=== PATIENT | male | born 1965 | race Caucasian/White ===

== ENCOUNTER 2017-11-14 12:25 | Inpatient (IN) | payer BC ==
[~2017-11-14] VITALS: Ht 170.2 cm; Wt 71.3 kg
[2017-11-14 13:07] LABS: BASOPHIL % 0.3 % (0-2); PLATELET COUNT 311 x10^3mcL (130-400)
[2017-11-14 13:08] LABS: UA SPECIFIC GRAVITY 1.015 (1.005-1.035); microscopic required? YES; urine erythrocyte NEGATIVE (NEGATIVE)
[2017-11-14 13:08] LABS: RED CELL DISTRIBUTION WIDTH 14.6 % (11.5-14.5)
[2017-11-14 13:15] LABS: CARBON DIOXIDE 31.4 mmol/L (21-32); CHLORIDE SERUM 102 mmol/L (98-107); CREATININE SERUM 1.1 mg/dL (0.7-1.3); GFR1 > 60 mL/min; GLUCOSE SERUM 102 mg/dL (74-106); POTASSIUM SERUM 4.3 mmol/L (3.5-5.1); SODIUM SERUM 136 mmol/L (136-145)
[2017-11-14 13:19] LABS: ALBUMIN 4.1 g/dL (3.4-5.0); ALKALINE PHOSPHATASE 113 U/L (46-116); ALT/SGPT 11 U/L (16-63); AST/SGOT 12 U/L (15-37); BILIRUBIN TOTAL 0.6 mg/dL (0.20-1.00); HDL CHOLESTEROL 49 mg/dL (40-60); LIPASE 74 IU/L (73-393); TOTAL PROTEIN, SERUM 7.8 g/dL (6.4-8.2); TRIGLYCERIDES 100 mg/dL (<150)
[2017-11-14 13:23] LABS: CHOLESTEROL 286 mg/dL (<200); CHOLESTEROL/HDL RATIO 5.8
[2017-11-14 14:18] LABS: AMPHETAMINE QUAL UR NONE DETECTED (NEG <=1000)
[2017-11-14 14:30] LABS: FREE T4 0.95 ng/dL (0.76-1.46); FREE THYROXINE INDEX 2.9 ug/dL (1.4-4.5); T4(THYROXINE) 9.2 ug/dL (4.7-13.3)
[2017-11-14 14:53] LABS: MAGNESIUM 2.2 mg/dL (1.8-2.4); PHOSPHOROUS 3.3 mg/dL (2.5-4.9)
[2017-11-14 14:59] LABS: T3 TOTAL 1.25 ng/mL
[2017-11-14 15:01] VITALS: BP 146/77
[2017-11-14 15:04] VITALS: Ht 170.2 cm; Wt 71.3 kg
[2017-11-14 18:01] VITALS: BP 135/78; BP 140/80
[2017-11-14 20:54] VITALS: BP 146/75
[2017-11-15] VITALS (10 sets, daily range): BP systolic 109–139; BP diastolic 57–87
[2017-11-15 06:42] LABS: BASOPHIL % 0.2 % (0-2); PLATELET COUNT 285 x10^3mcL (130-400); RED CELL DISTRIBUTION WIDTH 14.4 % (11.5-14.5)
[2017-11-15 06:48] LABS: CALCIUM 8.1 mg/dL (8.5-10.1); CARBON DIOXIDE 26.4 mmol/L (21-32); CHLORIDE SERUM 103 mmol/L (98-107); CREATININE SERUM 0.8 mg/dL (0.7-1.3); GFR1 > 60 mL/min; GLUCOSE SERUM 120 mg/dL (74-106); POTASSIUM SERUM 3.8 mmol/L (3.5-5.1); SODIUM SERUM 134 mmol/L (136-145)
[2017-11-15] MEDS ORDERED: ASPIRIN81 MG PO (15:15)
[2017-11-15] MEDS ORDERED: ATORVASTATIN CA80 M1 PO (15:15)
[2017-11-15] MEDS ORDERED: METOPROLOL SUCC25 M2 PO (15:17)
[2017-11-15] MEDS ORDERED: LISINOPRIL10 MG PO (15:18)
[2017-11-16 05:46] VITALS: BP 106/62
[2017-11-16 06:43] LABS: BASOPHIL % 0.1 % (0-2); PLATELET COUNT 261 x10^3mcL (130-400)
[2017-11-16 06:50] LABS: CALCIUM 8.5 mg/dL (8.5-10.1); CARBON DIOXIDE 25.1 mmol/L (21-32); CHLORIDE SERUM 100 mmol/L (98-107); GFR1 > 60 mL/min; GLUCOSE SERUM 123 mg/dL (74-106); MAGNESIUM 2.2 mg/dL (1.8-2.4); PHOSPHOROUS 3.5 mg/dL (2.5-4.9); POTASSIUM SERUM 3.7 mmol/L (3.5-5.1); SODIUM SERUM 133 mmol/L (136-145)
[2017-11-16 07:13] LABS: RED CELL DISTRIBUTION WIDTH 14.7 % (11.5-14.5)
[2017-11-16 09:29] VITALS: BP 114/77
[2017-11-16 14:19] VITALS: BP 105/67
[2017-11-16 17:16] VITALS: BP 116/69
[2017-11-16 21:13] VITALS: BP 113/65
[2017-11-17 05:43] VITALS: BP 104/65
[2017-11-17 06:09] LABS: BASOPHIL % 0.5 % (0-2); PLATELET COUNT 227 x10^3mcL (130-400); RED CELL DISTRIBUTION WIDTH 14.3 % (11.5-14.5)
[2017-11-17 06:40] LABS: CALCIUM 8.1 mg/dL (8.5-10.1); CARBON DIOXIDE 23.5 mmol/L (21-32); CHLORIDE SERUM 101 mmol/L (98-107); GFR1 > 60 mL/min; GLUCOSE SERUM 104 mg/dL (74-106); MAGNESIUM 2.1 mg/dL (1.8-2.4); PHOSPHOROUS 2.4 mg/dL (2.5-4.9); POTASSIUM SERUM 3.6 mmol/L (3.5-5.1); SODIUM SERUM 133 mmol/L (136-145)
[2017-11-17 08:43] VITALS: BP 121/69
[2017-11-17 12:21] VITALS: BP 121/69
== END 2017-11-17 13:07 | disposition home or self-care (01) | DRG 250 ==
LOC: ED 12:25 → DU 13:58
PROVIDERS: Family Medicine; Internal Medicine Interventional Cardiology; Specialist; Student in an Organized Health Care Education/Training Program
PROC: 02703ZZ Dilation of Coronary Artery, One Artery, Percutaneous Approach (ICD-10-PCS; 2017-11-15)
PROC: B2111ZZ Fluoroscopy of Multiple Coronary Arteries using Low Osmolar Contrast (ICD-10-PCS; 2017-11-15)
PROC: B2151ZZ Fluoroscopy of Left Heart using Low Osmolar Contrast (ICD-10-PCS; 2017-11-15)
PROC: 4A023N7 Measurement of Cardiac Sampling and Pressure, Left Heart, Percutaneous Approach (ICD-10-PCS; principal; 2017-11-15 13:30)
DX: I21.4 Non-ST elevation (NSTEMI) myocardial infarction (principal); N17.0 Acute kidney failure with tubular necrosis; E87.1 Hypo-osmolality and hyponatremia; D72.829 Elevated white blood cell count, unspecified; E78.5 Hyperlipidemia, unspecified; F43.9 Reaction to severe stress, unspecified
CPT/HCPCS: CLHCL; 76937; 83880; 84439; 94150; C1760; C1769; C1887; C1894; J1327; J1644; J2001; J2250; J2270; J2405; J3010; J7030; J7050; Q0092; Q9967

== ENCOUNTER 2018-09-15 10:18 | Emergency (ER) | payer BC ==
[~2018-09-15] VITALS: Ht 167.6 cm; Wt 68.1 kg
[~2018-09-15 10:18] MED LIST: ASPIRIN81 MG PO; ATORVASTATIN CA80 M1 PO; LISINOPRIL10 MG PO; METOPROLOL SUCC25 M2 PO
[2018-09-15 10:20] VITALS: Ht 167.6 cm; Wt 68.1 kg
[2018-09-15 11:02] LABS: BASOPHIL % 0.1 % (0-2); PLATELET COUNT 214 x10^3mcL (130-400)
[2018-09-15 11:07] LABS: CALCIUM 8.5 mg/dL (8.5-10.1); CREATININE SERUM 1.4 mg/dL (0.7-1.3); POTASSIUM SERUM 3.4 mmol/L (3.5-5.1)
[2018-09-15 11:13] LABS: ALBUMIN 3.8 g/dL (3.4-5.0); BILIRUBIN TOTAL 0.54 mg/dL (0.20-1.00); TOTAL PROTEIN, SERUM 7.8 g/dL (6.4-8.2)
[2018-09-15 11:31] LABS: microscopic required? YES; urine erythrocyte NEGATIVE (NEGATIVE)
[2018-09-15 13:40] VITALS: BP 97/59
== END 2018-09-15 13:40 | disposition home or self-care (01) ==
LOC: ED 10:18
PROVIDERS: Emergency Medicine
DX: J11.1 Influenza due to unidentified influenza virus with other respiratory manifestations (principal); R07.89 Other chest pain; I10 Essential (primary) hypertension; E78.00 Pure hypercholesterolemia, unspecified; Z88.8 Allergy status to other drugs, medicaments and biological substances
CPT/HCPCS: 87804; J1885; J7030

== ENCOUNTER 2020-06-15 12:42 | Emergency (ER) | payer BC, SELFPAY ==
[2020-06-15 14:46] VITALS: BP 124/83
== END 2020-06-15 14:46 | disposition home or self-care (01) ==
LOC: ED 12:42
DX: J02.9 Acute pharyngitis, unspecified (principal); I10 Essential (primary) hypertension; E78.00 Pure hypercholesterolemia, unspecified; Z88.8 Allergy status to other drugs, medicaments and biological substances
CPT/HCPCS: Q0092

== ENCOUNTER 2020-06-21 12:21 | Inpatient (IN) | payer BC, SELFPAY ==
[~2020-06-21] VITALS: Ht 167.6 cm; Wt 73.5 kg
[2020-06-21 12:45] VITALS: Ht 167.6 cm; Wt 73.5 kg
[2020-06-21] MEDS ORDERED: TOPROL XL25 MG PO (12:50)
[2020-06-21] MEDS ORDERED: ZETIA10 M1 PO (12:50)
[2020-06-21 14:16] LABS: BASOPHIL % 0.1 % (0-2); PLATELET COUNT 220 x10^3mcL (130-400)
[2020-06-21 14:18] LABS: RED CELL DISTRIBUTION WIDTH 14.8 % (11.5-14.5)
[2020-06-21 14:35] LABS: ALKALINE PHOSPHATASE 77 U/L (46-116); ALT/SGPT 33 U/L (16-63); AST/SGOT 22 U/L (15-37); BILIRUBIN TOTAL 0.68 mg/dL (0.20-1.00); C REACTIVE PROTEIN 6.5 mg/dL (<=0.9); CALCIUM 8.7 mg/dL (8.5-10.1); CARBON DIOXIDE 23.2 mmol/L (21-32); CHLORIDE SERUM 98 mmol/L (98-107); GFR1 > 60 mL/min; GLUCOSE SERUM 93 mg/dL (74-106); LACTIC DEHYDROGENASE (LDH) 153 U/L (100-190); POTASSIUM SERUM 3.5 mmol/L (3.5-5.1); SODIUM SERUM 134 mmol/L (136-145); TOTAL PROTEIN, SERUM 7.4 g/dL (6.4-8.2)
[2020-06-21 14:36] LABS: ALBUMIN 3.3 g/dL (3.4-5.0)
[2020-06-21 16:46] LABS: MAGNESIUM 2.2 mg/dL (1.8-2.4); PHOSPHOROUS 3.8 mg/dL (2.5-4.9)
[2020-06-21 16:55] LABS: CHOLESTEROL/HDL RATIO 5.1
[2020-06-21 17:53] LABS: T3 TOTAL 1.31 ng/mL
[2020-06-21 17:59] LABS: FREE T4 1.35 ng/dL (0.76-1.46); FREE THYROXINE INDEX 3.8 ug/dL (1.4-4.5); T4(THYROXINE) 10.2 ug/dL (4.7-13.3)
[2020-06-21 18:27] VITALS: BP 121/79
[2020-06-21 20:27] VITALS: BP 111/66
[2020-06-22 06:23] VITALS: BP 119/66
[2020-06-22 06:50] LABS: BASOPHIL % 0.3 % (0-2); PLATELET COUNT 228 x10^3mcL (130-400); RED CELL DISTRIBUTION WIDTH 14.5 % (11.5-14.5)
[2020-06-22 06:56] LABS: CALCIUM 8.5 mg/dL (8.5-10.1); CARBON DIOXIDE 22.6 mmol/L (21-32); CHLORIDE SERUM 98 mmol/L (98-107); CREATININE SERUM 0.9 mg/dL (0.7-1.3); GFR1 > 60 mL/min; GLUCOSE SERUM 110 mg/dL (74-106); MAGNESIUM 2.3 mg/dL (1.8-2.4); PHOSPHOROUS 3.5 mg/dL (2.5-4.9); POTASSIUM SERUM 3.7 mmol/L (3.5-5.1); SODIUM SERUM 133 mmol/L (136-145)
[2020-06-22 09:05] VITALS: BP 131/77
[2020-06-22 11:51] LABS: microscopic required? NO
[2020-06-22 12:11] VITALS: BP 109/71
[2020-06-22 12:19] LABS: UA SPECIFIC GRAVITY >=1.030 (1.005-1.035); urine erythrocyte NEGATIVE (NEGATIVE)
[2020-06-22 12:29] LABS: AMPHETAMINE QUAL UR NONE DETECTED (See below)
[2020-06-22 17:07] VITALS: BP 110/69
[2020-06-22 20:27] VITALS: BP 137/83
[2020-06-23 05:43] VITALS: BP 133/83
[2020-06-23 06:49] LABS: PLATELET COUNT 258 x10^3mcL (130-400)
[2020-06-23 07:43] LABS: C REACTIVE PROTEIN 5.2 mg/dL (<=0.9); CALCIUM 9.3 mg/dL (8.5-10.1); CARBON DIOXIDE 19.5 mmol/L (21-32); CHLORIDE SERUM 99 mmol/L (98-107); CREATININE SERUM 0.7 mg/dL (0.7-1.3); GFR1 > 60 mL/min; GLUCOSE SERUM 123 mg/dL (74-106); MAGNESIUM 2.5 mg/dL (1.8-2.4); PHOSPHOROUS 4.5 mg/dL (2.5-4.9); POTASSIUM SERUM 4.7 mmol/L (3.5-5.1); SODIUM SERUM 134 mmol/L (136-145)
[2020-06-23 07:55] LABS: RED CELL DISTRIBUTION WIDTH 14.7 % (11.5-14.5)
[2020-06-23 07:56] LABS: BASOPHIL % 0 % (0-2)
[2020-06-23 08:57] VITALS: BP 128/76
[2020-06-23 12:22] VITALS: BP 112/72
[2020-06-23 16:48] VITALS: BP 107/66
[2020-06-23 20:40] VITALS: BP 107/59
[2020-06-24 05:46] VITALS: BP 103/54
[2020-06-24 06:58] LABS: BASOPHIL % 0.4 % (0-2); PLATELET COUNT 280 x10^3mcL (130-400); RED CELL DISTRIBUTION WIDTH 14.4 % (11.5-14.5)
[2020-06-24 07:50] LABS: CALCIUM 8.6 mg/dL (8.5-10.1); CARBON DIOXIDE 24.6 mmol/L (21-32); CHLORIDE SERUM 102 mmol/L (98-107); CREATININE SERUM 0.8 mg/dL (0.7-1.3); GFR1 > 60 mL/min; GLUCOSE SERUM 94 mg/dL (74-106); POTASSIUM SERUM 3.8 mmol/L (3.5-5.1); SODIUM SERUM 136 mmol/L (136-145)
[2020-06-24 08:38] VITALS: BP 93/69
[2020-06-24] MEDS ORDERED: VENTOLIN H0.09 MG/A1 INH (09:16)
[2020-06-24] MEDS ORDERED: MEDI-FIRST ASP325 MG PO (09:18)
[2020-06-24] MEDS ORDERED: MUCINEX600 MG PO (09:19)
[2020-06-24] MEDS ORDERED: ASPIRIN CHILDRE81 MG PO (09:21)
[2020-06-24 11:50] VITALS: BP 107/70
== END 2020-06-24 13:46 | disposition home or self-care (01) | DRG 177 ==
LOC: ED 12:21 → DU 15:06
PROVIDERS: Emergency Medicine; ADMIT Internal Medicine; ATTEND Internal Medicine
DX: U07.1 COVID-19 (principal); J12.89 Other viral pneumonia; J96.01 Acute respiratory failure with hypoxia; E87.1 Hypo-osmolality and hyponatremia; I10 Essential (primary) hypertension; R73.03 Prediabetes; E78.5 Hyperlipidemia, unspecified; I25.10 Atherosclerotic heart disease of native coronary artery without angina pectoris; Z83.3 Family history of diabetes mellitus; Z88.8 Allergy status to other drugs, medicaments and biological substances; Z79.899 Other long term (current) drug therapy; I25.2 Old myocardial infarction
CPT/HCPCS: 83880; 84439; 85378; 87804; 90658; 94150; G0378; J0456; J0696; J1100; J1650; J3535; J7030; U0003